=== PATIENT | female | born 1960 | race American Indian/Alaskan Native ===

== ENCOUNTER 2016-08-01 09:12 | Emergency (ER) | payer BC ==
[2016-08-01 09:20] VITALS: BMI 24.7
[2016-08-01 09:24] VITALS: TEMP 98.3; O2SAT 100
--- NOTE | 2016-08-01 09:47 | ED PDOC ---
Arrival/HPI - General Chief Complaint: Back Pain Time Seen by Provider: 08/01/16 09:46 Historian: Patient - History of Present Illness Narrative History of Present Illness (Text): 08/01/16 09:45 This 56 yo female with pmh htn, dm, vertigo, constipation, presents to this ED c /o right lower back/ flank pain x 4 days. Patient stated pain started after she unplug some wires. Denies fall, trauma, weakness, paresthesias, /GI incontinence, saddle anesthesia, urinary retention, urinary symptoms, vaginal discharge vaginal bleeding, or abnormal gait. Time/Duration: Other (4 days) Quality: Aching Context: Home Past Medical History - Provider Review Nursing Documentation Reviewed: Yes - Cardiac Hx Cardiac Disorders: Yes Hx Hypertension: Yes - Pulmonary Hx Respiratory Disorders: No - Neurological Hx Neurological Disorder: Yes Hx Vertigo: Yes - HEENT Hx HEENT Disorder: No Hx Blind: No - Renal Hx Renal Disorder: No - Endocrine/Metabolic Hx Endocrine Disorders: Yes Hx Diabetes Mellitus Type 2: Yes - Hematological/Oncological Hx Blood Disorders: No - Integumentary Hx Dermatological Disorder: No - Musculoskeletal/Rheumatological Hx Musculoskeletal Disorders: No - Gastrointestinal Hx Gastrointestinal Disorders: No - Genitourinary/Gynecological Hx Genitourinary Disorders: No - Psychiatric Hx Psychophysiologic Disorder: No Hx Substance Use: No - Surgical History Hx Tubal Ligation: Yes Family/Social History - Physician Review Nursing Documentation Reviewed: Yes Family/Social History: No Known Family HX Smoking Status: Never Smoked Hx Alcohol Use: No Hx Substance Use: No Allergies/Home Meds Allergies/Adverse Reactions: Allergies No Known Allergies Allergy (Verified 08/01/16 09:20) Home Medications: Home Meds Medication Instructions Recorded Confirmed Amlodipine Besylate/Benazepril 1 tab PO DAILY 08/01/16 08/01/16 [Amlodipine-Benazepril 10-40 mg] Aspirin [Aspirin Chewable] 81 mg PO DAILY 08/01/16 08/01/16 Carvedilol [Coreg] 6.25 mg PO BID 08/01/16 08/01/16 Digoxin [Digitek] 250 mcg PO DAILY 08/01/16 08/01/16 Glimepiride [amaRYL] 4 mg PO DAILY 08/01/16 08/01/16 MetFORMIN [glucoPHAGE] 1,000 mg PO BID 08/01/16 08/01/16 Simvastatin [Zocor] 20 mg PO HS 08/01/16 08/01/16 Review of Systems - Review of Systems Constitutional: Normal. absent: Fatigue, Weight Change, Fevers Eyes: Normal ENT: Normal Respiratory: Normal. absent: SOB, Cough Cardiovascular: Normal. absent: Chest Pain, Palpitations Gastrointestinal: Normal. absent: Abdominal Pain, Nausea, Vomiting Genitourinary Female: Normal. absent: Dysuria, Frequency, Hematuria, Vaginal Bleeding, Vaginal Discharge Musculoskeletal: Normal, Back Pain Skin: Normal. absent: Rash Neurological: Normal Endocrine: Normal Hemo/Lymphatic: Normal Psychiatric: Normal Physical Exam Vital Signs Temp Pulse Resp BP Pulse Ox 08/01/16 11:02 66 18 106/62 100 08/01/16 09:20 98.3 F 80 16 97/65 L 100 Temperature: Afebrile Blood Pressure: Normal Pulse: Regular Respiratory Rate: Normal Appearance: Positive for: Well-Appearing, Non-Toxic, Comfortable Pain Distress: None Mental Status: Positive for: Alert and Oriented X 3 - Systems Exam Head: Present: Atraumatic, Normocephalic Pupils: Present: PERRL Extroacular Muscles: Present: EOMI Conjunctiva: Present: Normal Mouth: Present: Moist Mucous Membranes Neck: Present: Normal Range of Motion. No: Meningeal Signs Respiratory/Chest: Present: Clear to Auscultation, Good Air Exchange. No: Respiratory Distress, Accessory Muscle Use Cardiovascular: Present: Regular Rate and Rhythm, Normal S1, S2. No: Murmurs Abdomen: Present: Normal Bowel Sounds. No: Tenderness, Distention, Peritoneal Signs, Rebound, Guarding Back: Present: Normal Inspection, Paraspinal Tenderness (Mild right paravertebral tenderness on palpation. no vertebral step off. No veretbarla point tenderness). No: CVA Tenderness, Midline Tenderness Upper Extremity: Present: Normal Inspection, Normal ROM, NORMAL PULSES, Neurovascularly Intact, Capillary Refill < 2s. No: Cyanosis, Edema Lower Extremity: Present: Normal Inspection, NORMAL PULSES, Normal ROM, Neurovascularly Intact, Capillary Refill < 2 s. No: Edema Neurological: Present: GCS=15, CN II-XII Intact, Speech Normal, Motor Func Grossly Intact, Normal Sensory Function, Normal Cerebellar Funct, Gait Normal, Memory Normal Skin: Present: Warm, Dry, Normal Color. No: Rashes Psychiatric: Present: Alert, Oriented x 3, Normal Insight, Normal Concentration Medical Decision Making ED Course and Treatment: 08/01/16 12:21 I spoke with patient regarding Urinalysis result. She was recommended to follow up [facility], and Urologist for renal stone. Patient stated pain is controlled , and she wishes to be discharge home. Re-evaluation Time: 12:22 Reassessment Condition: Re-examined, Improved - Lab Interpretations Lab Results: Lab Results 08/01/16 10:00: Urine Color Yellow, Urine Appearance Sl cloudy, Urine pH 6.0, Ur Specific [place] 1.025, Urine Protein 30 H, Urine Glucose (UA) 500 H, Urine Ketones Negative, Urine Blood Trace-intact H, Urine Nitrate Negative, Urine Bilirubin Negative, Urine Urobilinogen 0.2, Ur Leukocyte Esterase Moderate H, Urine RBC 0 - 2, Urine WBC 20 - 25, Ur Epithelial Cells 10 - 12, Urine Bacteria Mod, Urine Other Trichomonas Interpretation: Abnormal lab values (Trichomonas in UA) - RAD Interpretation Narrative RAD Interpretations (Text): 08/01/16 11:59 Accession No. : [id number] Patient Name / ID : SUMAYA PINEDA / [id number] Exam Date : 08/01/2016 10:07:26 ( Approved ) Study Comment : Sex / Age : F / 56Y Creator : Cal Jessica MD Dictator : Cal Jessica MD Gas Engine Performance Engineer : Certified Ophthalmic Technologist : Cal Jessica MD Approver2 : Report Date : 08/01/2016 10:58:53 My Comment : PROCEDURE: CT Abdomen and Pelvis without intravenous contrast HISTORY: right flank pain r/o stones COMPARISON: None. TECHNIQUE: Without contrast.. Contrast Dose: Radiation dose: Total exam DLP = 614 mGy-cm. This CT exam was performed using one or more of the following dose reduction techniques: Automated exposure control, adjustment of the mA and/or kV according to patient size, and/or use of iterative reconstruction technique. FINDINGS: LOWER THORAX: Unremarkable. LIVER: Unremarkable. No gross lesion or ductal dilatation. GALLBLADDER AND BILE DUCTS: Unremarkable. PANCREAS: Unremarkable. No gross lesion or ductal dilatation. SPLEEN: Unremarkable. ADRENALS: Unremarkable. No mass. KIDNEYS AND URETERS: There is a 3 mm stone in the right distal ureter at the level of the sacrum. This can be seen on image 104 series 2. There is no associated hydronephrosis. The finding is also seen on coronal image 65 Simple cysts are seen in both kidneys VASCULATURE: Unremarkable. No aortic aneurysm. Calcified phleboliths are seen in the pelvis. BOWEL: Unremarkable. No obstruction. No gross mural thickening. APPENDIX: Unremarkable. Normal appendix. PERITONEUM: Unremarkable. No free fluid. No free air. LYMPH NODES: Unremarkable. No enlarged lymph nodes. BLADDER: Unremarkable. REPRODUCTIVE: There is a collection of air in the vagina. BONES: No acute fracture. OTHER FINDINGS: None. IMPRESSION: 3 mm stone in the right distal ureter without hydronephrosis 08/01/16 12:02 Accession No. : [id number] Patient Name / ID : SUMAYA PINEDA / [id number] Exam Date : 08/01/2016 10:10:35 ( Approved ) Study Comment : Sex / Age : F / 56Y Creator : Cal Jessica MD Dictator : Cal Jessica MD Gas Engine Performance Engineer : Certified Ophthalmic Technologist : Cal Jessica MD Approver2 : Report Date : 08/01/2016 10:44:45 My Comment : PROCEDURE: CT Lumbar Spine without contrast HISTORY: right flank pain COMPARISON: None. TECHNIQUE: Axial computed tomography images were obtained of the lumbar spine without the use of intravenous contrast. Coronal and sagittal reformatted images were created and reviewed. Radiation dose: Total exam DLP = 400 mGy-cm. This CT exam was performed using one or more of the following dose reduction techniques: Automated exposure control, adjustment of the mA and/or kV according to patient size, and/or use of iterative reconstruction technique. FINDINGS: VERTEBRAE: Unremarkable. No fracture. Normal alignment. DISCS/SPINAL CANAL/NEURAL FORAMINA: L1-2: Unremarkable. L2-3: Unremarkable. L3-4: Unremarkable. L4-5: Moderate disc bulge L5-S1: Severe disc degeneration with disc space narrowing and osteophyte formation. Bilateral foraminal stenosis PARASPINAL SOFT TISSUES: Unremarkable. OTHER FINDINGS: None. IMPRESSION: Severe disc degeneration with disc space narrowing and osteophyte formation at L5-S1 with moderate foraminal stenosis. Moderate disc bulge at L4-5 Radiology Orders: 08/01/16 09:56 ABD & PELVIS W/O PO OR IV CONT [CT] Stat LUMBAR SPINE W/O CONTRAST [CT] Stat - Medication Orders Current Medication Orders: Discontinued Medications Ceftriaxone Sodium (Rocephin) 250 mg IM STAT STA PRN Reason: Protocol Stop: 08/01/16 12:01 Doxycycline Hyclate (Doryx) 100 mg PO STAT STA PRN Reason: Protocol Stop: 08/01/16 12:02 Sodium Chloride (Sodium Chloride 0.9%) 1,000 mls @ 999 mls/hr IV .Q1H1M STA Stop: 08/01/16 10:57 Last Admin: 08/01/16 10:01 Dose: 999 mls/hr Ketorolac Tromethamine (Toradol) 15 mg IVP STAT STA Stop: 08/01/16 09:58 Last Admin: 08/01/16 10:02 Dose: 15 mg Metronidazole (Flagyl) 2,000 mg PO STAT STA PRN Reason: Protocol Stop: 08/01/16 12:01 Disposition/Present on Arrival - Present on Arrival Any Indicators Present on Arrival: No History of DVT/PE: No History of Uncontrolled Diabetes: No Urinary Catheter: No History of Decub. Ulcer: No History Surgical Site Infection Following: None - Disposition Have Diagnosis and Disposition been Completed?: Yes Diagnosis: Trichomonas infection, Ureterolithiasis Disposition: HOME/ ROUTINE Disposition Time: 12:24 Patient Plan: Discharge Patient Problems: Current Active Problems Problem Status Onset Trichomonas infection Acute Ureterolithiasis Acute Condition: GOOD Discharge Instructions (ExitCare): Ureteral Stones (ED), Trichomoniasis (ED) Additional Instructions: Call private doctor for follow up visit in 1-[address] Rosario Urologist office today or tomorrow for follow up visit. Take medication as instructed. Avoid sun exposure while taking antibiotic. Return to emergency if symptoms worsen. Prescriptions: Cephalexin [cephalexin] 500 mg PO BID #10 cap Doxycycline Monohydrate 100 mg PO BID #14 tablet oxyCODONE/Acetaminophen [Percocet 5/325 mg Tab] 1 ea PO Q4H PRN #20 tab PRN Reason: Pain, Severe (8-10) Referrals: Jaylon Silva Jr., MD [Primary Care Provider] - Follow up with primary Obey Rosario MD [Staff Provider] - Follow up with primary Yeimy Love MD [Staff Provider] - Follow up with primary Forms: WORK NOTE
[2016-08-01] MEDS ORDERED: Sodium Chloride 0.9% 1,000 ML IV STA (09:57)
[2016-08-01 10:05] LABS: URINE BILIRUBIN NEGATIVE (NEGATIVE); URINE BLOOD TRACE-INTACT (NEGATIVE); URINE GLUCOSE (UA) 500 mg/dL (NEGATIVE); URINE KETONE NEGATIVE (NEGATIVE); URINE LEUKOCYTE ESTERASE MODERATE Leu/uL (NEGATIVE); URINE PROTEIN 30 mg/dL (<30 mg/dL); URINE UROBILINOGEN 0.2 E.U./dL (<1 E.U./dL)
[2016-08-01 10:18] LABS: URINE APPEARANCE SL CLOUDY (CLEAR); URINE COLOR YELLOW (YELLOW)
[2016-08-01 10:19] LABS: URINE BACTERIA MOD (NEG); URINE RBC 0 - 2 /hpf (0-2); URINE WBC 20 - 25 /hpf (0-6)
--- NOTE | 2016-08-01 10:46 | CT ---
PROCEDURE: CT Lumbar Spine without contrast HISTORY: right flank pain COMPARISON: None. TECHNIQUE: Axial computed tomography images were obtained of the lumbar spine without the use of intravenous contrast. Coronal and sagittal reformatted images were created and reviewed. Radiation dose: Total exam DLP = 400 mGy-cm. This CT exam was performed using one or more of the following dose reduction techniques: Automated exposure control, adjustment of the mA and/or kV according to patient size, and/or use of iterative reconstruction technique. FINDINGS: VERTEBRAE: Unremarkable. No fracture. Normal alignment. DISCS/SPINAL CANAL/NEURAL FORAMINA: L1-2: Unremarkable. L2-3: Unremarkable. L3-4: Unremarkable. L4-5: Moderate disc bulge L5-S1: Severe disc degeneration with disc space narrowing and osteophyte formation. Bilateral foraminal stenosis PARASPINAL SOFT TISSUES: Unremarkable. OTHER FINDINGS: None. IMPRESSION: Severe disc degeneration with disc space narrowing and osteophyte formation at L5-S1 with moderate foraminal stenosis. Moderate disc bulge at L4-5
--- NOTE | 2016-08-01 11:00 | CT ---
PROCEDURE: CT Abdomen and Pelvis without intravenous contrast HISTORY: right flank pain r/o stones COMPARISON: None. TECHNIQUE: Without contrast.. Contrast Dose: Radiation dose: Total exam DLP = 614 mGy-cm. This CT exam was performed using one or more of the following dose reduction techniques: Automated exposure control, adjustment of the mA and/or kV according to patient size, and/or use of iterative reconstruction technique. FINDINGS: LOWER THORAX: Unremarkable. LIVER: Unremarkable. No gross lesion or ductal dilatation. GALLBLADDER AND BILE DUCTS: Unremarkable. PANCREAS: Unremarkable. No gross lesion or ductal dilatation. SPLEEN: Unremarkable. ADRENALS: Unremarkable. No mass. KIDNEYS AND URETERS: There is a 3 mm stone in the right distal ureter at the level of the sacrum. This can be seen on image 104 series 2. There is no associated hydronephrosis. The finding is also seen on coronal image 65 Simple cysts are seen in both kidneys VASCULATURE: Unremarkable. No aortic aneurysm. Calcified phleboliths are seen in the pelvis. BOWEL: Unremarkable. No obstruction. No gross mural thickening. APPENDIX: Unremarkable. Normal appendix. PERITONEUM: Unremarkable. No free fluid. No free air. LYMPH NODES: Unremarkable. No enlarged lymph nodes. BLADDER: Unremarkable. REPRODUCTIVE: There is a collection of air in the vagina. BONES: No acute fracture. OTHER FINDINGS: None. IMPRESSION: 3 mm stone in the right distal ureter without hydronephrosis
[2016-08-01 11:03] VITALS: RESP 18
[2016-08-01] MEDS ORDERED: cefTRIAXone (Rocephin) 250 mg Inj IM STA (12:00)
[2016-08-01 12:57] VITALS: BP 105/65; PULSE 69
== END 2016-08-01 12:54 | disposition home or self-care (01) ==
LOC: MERGE 09:12 → ED 09:12
DX: A59.9 Trichomoniasis, unspecified (principal); N20.1 Calculus of ureter
CPT/HCPCS: 72131; 74176; 81001; 87491; 87591; 96372; 96374; 99284; J0696; J1885; J7040

== ENCOUNTER 2017-10-17 11:33 | Emergency (ER) | payer BC ==
[2017-10-17 11:33] VITALS: BMI 24.7
--- NOTE | 2017-10-17 12:34 | ED PDOC ---
Arrival/HPI - General Historian: Patient - History of Present Illness Time/Duration: < month Symptom Onset: Gradual Symptom Course: Improving Activities at Onset: Rest <Louis Bill - Last Filed: 10/17/17 14:59> <Feroz Melara - Last Filed: 10/17/17 20:51> - General Chief Complaint: Cough, Cold, Congestion Time Seen by Provider: 10/17/17 11:36 - History of Present Illness Narrative History of Present Illness (Text): 10/17/17 12:10 PGY-[address] Melara 57 year old female with PMHx HTN, DM II, vertigo presents to ED complaining of cough with blood in the sputum. Pt states that two weeks ago she began to develop a productive cough with yellow sputum associated with feelings of facial and ear fullness and pain in the chest and back when she coughs. Pt also has experienced myalgias, nasal congestion, intermittent dizziness, and pain near her left eye. Pt was coughing yesterday and coughed up bright red blood in her sputum, prompting her to come to the ED today. She has two kids at home who have been sick with upper respiratory symptoms. Pt denies any recent history of travel, received the BCG vaccine as a child. Denies smoking or alcohol use. Denies shortness of breath, radiating chest pain, abdominal pain, vomiting, diarrhea, fevers, chills (Louis Bill) Past Medical History - Provider Review Nursing Documentation Reviewed: Yes - Travel History Have you recently traveled outside [place] w/in the past 3 mons?: No - Past History Past History: No Previous - Infectious Disease Hx of Infectious Diseases: None - Tetanus Immunization Tetanus Immunization: Unknown - Past Medical History Past Medical History: Non-Contributing - Cardiac Hx Cardiac Disorders: Yes Hx Hypertension: Yes - Pulmonary Hx Respiratory Disorders: No - Neurological Hx Neurological Disorder: Yes Hx Vertigo: Yes - HEENT Hx HEENT Disorder: No Hx Blind: No - Renal Hx Renal Disorder: No - Endocrine/Metabolic Hx Endocrine Disorders: Yes Hx Diabetes Mellitus Type 2: Yes - Hematological/Oncological Hx Blood Disorders: No - Integumentary Hx Dermatological Disorder: No - Musculoskeletal/Rheumatological Hx Musculoskeletal Disorders: No - Gastrointestinal Hx Gastrointestinal Disorders: No - Genitourinary/Gynecological Hx Genitourinary Disorders: No - Psychiatric Hx Psychophysiologic Disorder: No Hx Substance Use: No - Surgical History Hx Tubal Ligation: Yes <Louis Bill - Last Filed: 10/17/17 14:59> Family/Social History - Physician Review Nursing Documentation Reviewed: Yes Family/Social History: Diabetes, Hypertension Smoking Status: Never Smoked Hx Alcohol Use: No Hx Substance Use: No <AllisonanisaLouis - Last Filed: 10/17/17 14:59> Allergies/Home Meds <FlyLouis - Last Filed: 10/17/17 14:59> <Feroz Melara - Last Filed: 10/17/17 20:51> Allergies/Adverse Reactions: Allergies No Known Allergies Allergy (Verified 10/17/17 11:35) Home Medications: Home Meds Medication Instructions Recorded Confirmed Aspirin [Aspirin Chewable] 81 mg PO DAILY 08/01/16 10/17/17 Glimepiride [amaRYL] 4 mg PO DAILY 08/01/16 10/17/17 Furosemide [Lasix] 40 mg PO DAILY 10/17/17 10/17/17 Review of Systems - Physician Review All systems were reviewed & negative as marked: Yes - Review of Systems Constitutional: Fatigue Eyes: Vision Changes (+visual changes 2/2 diabetes). absent: Photophobia, Eye Pain ENT: Hearing Changes (ear ringing), Rhinorrhea, Sinus Congestion. absent: Epistaxis Respiratory: Cough, Sputum. absent: SOB, Wheezing Cardiovascular: Chest Pain (a/w cough). absent: Palpitations, LAIRD, Syncope Gastrointestinal: Constipation. absent: Abdominal Pain, Stool Changes, Diarrhea , Nausea, Vomiting, Appetite Changes, Hematochezia, Hematemesis Musculoskeletal: Back Pain, Myalgias. absent: Neck Pain Skin: absent: Rash, Pruritis Neurological: Dizziness. absent: Headache, Focal Weakness, Speech Changes, Facial Droop <Louis Bill - Last Filed: 10/17/17 14:59> Physical Exam Vital Signs Reviewed: Yes Temperature: Afebrile Blood Pressure: Hypertensive Pulse: Regular Respiratory Rate: Normal Appearance: Positive for: Uncomfortable Pain Distress: Mild Mental Status: Positive for: Alert and Oriented X 3. No: Confused, Agitated, Lethargic - Systems Exam Head: Present: Atraumatic, Normocephalic Pupils: Present: PERRL Extroacular Muscles: Present: EOMI Conjunctiva: Present: Normal Mouth: Present: Moist Mucous Membranes, Normal Lips, Normal Tounge Pharnyx: Present: Muffled/Hoarse Voice. No: ERYTHEMA, EXUDATE, TONSILS ENLARGED , Peritonsilar Swelling, Uvular Deviation Nose (External): Present: Atraumatic Respiratory/Chest: Present: Clear to Auscultation, Good Air Exchange. No: Respiratory Distress, Accessory Muscle Use, Wheezes, Decreased Breath Sounds, Rales, Rhonchi Abdomen: Present: Normal Bowel Sounds. No: Tenderness, Distention, Rebound, Guarding Upper Extremity: Present: Normal Inspection. No: Cyanosis, Edema Lower Extremity: Present: Normal Inspection. No: Edema, Cyanosis Neurological: Present: GCS=15, CN II-XII Intact, Speech Normal, Motor Func Grossly Intact, Normal Sensory Function, Gait Normal Skin: Present: Warm, Dry, Normal Color. No: Rashes Lymphatic: No: Cervical Adenopathy Psychiatric: Present: Alert, Oriented x 3, Normal Insight <Louis Bill - Last Filed: 10/17/17 14:59> Vital Signs Temp Pulse Resp BP Pulse Ox 10/17/17 13:17 98.2 F 71 18 164/93 H 99 10/17/17 12:53 98.2 F 71 18 164/93 H 99 10/17/17 11:37 98.8 F 83 16 155/91 H 97 Medical Decision Making <Louis Bill - Last Filed: 10/17/17 14:59> <Feroz Melara - Last Filed: 10/17/17 20:51> ED Course and Treatment: 10/17/17 12:43 Acute Bronchitis- rule out pneumonia, TB: PA/Lateral CXR shows no active disease Motrin 500mg PO Azithromycin 500 mg PO Fingerstick glucose (Louis Bill) 10/17/17 13:04 A 57 year old female, whose past medical history includes diabetes, hypertension , vertigo, and constipation, presents to the emergency department with a complaint of cough with blood in her urine. In agreement with resident note, which includes further HPI details. Patient was seen and evaluated with resident , came up with plan and treatment together. Patient appears well and in no acute distress. HEENT: normal, no sinus pressure or tenderness, TMI, oral membraines moist Lungs: clear to ausculations, no w/r/r Abd: soft and not tender Patient was able to get up and not feel dizzy in the ER. She was walking around with no dizziness. She was given Azithromycin and Motrin 600mg PO. Her FS was elevated. She states that because she has a cough it gets high. She has medications for diabetes but didn't take her meds yet today. Chest X-Ray: normal. She will follow up with her PMD in 1-2 days. She was advised to return to the emergency department if symptoms worsen or any other concern. 10/17/17 20:51 (Feroz Melara) - RAD Interpretation Radiology Orders: 10/17/17 12:05 CXR [CHEST TWO VIEWS (PA/LAT)] [RAD] Stat - Medication Orders Current Medication Orders: Discontinued Medications Azithromycin (Zithromax) 500 mg PO STAT STA PRN Reason: Protocol Stop: 10/17/17 12:28 Last Admin: 10/17/17 12:35 Dose: 500 mg Ibuprofen (Motrin Tab) 600 mg PO STAT STA Stop: 10/17/17 12:26 Last Admin: 10/17/17 12:35 Dose: 600 mg MAR Pain/Vitals Document 10/17/17 12:35 OCS (Rec: 10/17/17 12:35 [facility] [place] Pain Reassessment Is This A Pain ReAssessment? No Sleep Is patient sleeping during reassessment? No Presence of Pain Presence of Pain Yes Pain Scale Used Pain Scale Used Numeric Location Description Constant Aggravating Factors ADL's <Louis Bill - Last Filed: 10/17/17 14:59> - Scribe Statement The provider has reviewed the documentation as recorded by the Scribe <Feroz Melara - Last Filed: 10/17/17 20:51> - Scribe Statement Alva Mejía Provider Scribe Attestation: All medical record entries made by the Scribe were at my direction and personally dictated by me. I have reviewed the chart and agree that the record accurately reflects my personal performance of the history, physical exam, medical decision making, and the department course for this patient. I have also personally directed, reviewed, and agree with the discharge instructions and disposition. (Feroz Melara) Disposition/Present on Arrival - Present on Arrival Any Indicators Present on Arrival: No History of DVT/PE: No History of Uncontrolled Diabetes: No Urinary Catheter: No History of Decub. Ulcer: No History Surgical Site Infection Following: None - Disposition Have Diagnosis and Disposition been Completed?: Yes <Louis Bill - Last Filed: 10/17/17 14:59> - Disposition Disposition Time: 13:04 Patient Plan: Discharge <Feroz Melara - Last Filed: 10/17/17 20:51> - Disposition Diagnosis: Bronchitis Disposition: HOME/ ROUTINE Condition: IMPROVED Discharge Instructions (ExitCare): Acute Bronchitis Additional Instructions: MIRIAM SHELL, thank you for letting us take care of you today. Your provider was Feroz Melara DO and you were treated for Bronchitis. The emergency medical care you received today was directed at your acute symptoms. If you were prescribed any medication, please fill it and take as directed. It may take several days for your symptoms to resolve. Return to the Emergency Department if your symptoms worsen, do not improve, or if you have any other problems. Please contact your doctor or call one of the physicians/clinics you have been referred to that are listed on the Patient Visit Information form that is included in your discharge packet. Bring any paperwork you were given at discharge with you along with any medications you are taking to your follow up visit. Our treatment cannot replace ongoing medical care by a primary care provider outside of the emergency department. Thank you for allowing the [facility] team to be part of your care today. If you had an X-Ray or CT scan: A Radiologist will review the ED reading if any change in treatment is needed we will contact you. If you had a blood, urine, or wound culture: It will take several days for the results, if any change in treatment is needed we will contact you. If you had an STI test: It will take 48 hours for the results. Please call after 1 week if you have not heard back. Prescriptions: Azithromycin 250 mg PO DAILY #4 tab Ibuprofen [Motrin] 600 mg PO Q6 PRN #30 tab PRN Reason: Pain, Moderate (4-7) Referrals: Jaylon Silva Jr., MD [Primary Care Provider] - Follow up with primary Forms: [facility] ([place]ian), WORK NOTE
--- NOTE | 2017-10-17 12:34 | RAD ---
Date of service: 10/17/2017 HISTORY: cough r/o pna COMPARISON: No prior. TECHNIQUE: Chest PA and lateral FINDINGS: LUNGS: No active pulmonary disease. PLEURA: No significant pleural effusion identified. No pneumothorax apparent. CARDIOVASCULAR: Normal. OSSEOUS STRUCTURES: No significant abnormalities. VISUALIZED UPPER ABDOMEN: Normal. OTHER FINDINGS: None. IMPRESSION: No active disease.
[2017-10-17 12:54] VITALS: BP 164/93; PULSE 71; RESP 18; O2SAT 99
[2017-10-17 12:55] VITALS: TEMP 98.2
== END 2017-10-17 13:17 | disposition home or self-care (01) ==
LOC: ED 11:33
DX: J40 Bronchitis, not specified as acute or chronic (principal); E11.9 Type 2 diabetes mellitus without complications; I10 Essential (primary) hypertension